=== PATIENT | female | born 1980 | race Two or more races ===

== ENCOUNTER 2020-08-29 22:47 | Emergency (ER) | payer SELFPAY ==
[~2020-08-29] VITALS: Ht 170.2 cm; Wt 95.0 kg
[2020-08-30] MEDS: FOSPHENYTOIN 100 MG/2 ML VIAL. IV ONE (01:27)
--- NOTE | 2020-08-30 02:27 | RAD ---
EXAM: CT HEAD WITHOUT IV CONTRAST CLINICAL HISTORY: Reason: severe R sided pain, lesion?? / Spl. Instructions: / History: COMPARISON: None. TECHNIQUE: Routine CT of the head without contrast. Soft tissues and bone windows were reviewed. PQRS compliance statement - One or more of the following individualized dose reduction techniques wer e utilized for this study: 1. Automated exposure control 2. Adjustment of the mA and/or kV according to patient size 3. Use of iterative reconstruction technique FINDINGS: There is no evidence of hemorrhage, mass or extra-axial fluid collection. Alvarez-white differentiation is maintained with no evidence of edema. There is no mass effect or shift of the intracranial structures. The ventricles, basilar cisterns and cortical sulci are normal in size and configuration for the silvestre ents stated age. The cerebellum and brainstem are unremarkable. The calvarium demonstrates no evidence of fracture or focal lesion. The visualized portions of the orbits are normal. IMPRESSION: No evidence for acute intracranial process. EXAM: CT CERVICAL SPINE WITHOUT IV CONTRAST CLINICAL HISTORY: Reason: severe R sided pain, lesion?? / Spl. Instructions: / History: COMPARISON: None available. TECHNIQUE: Helical CT of the cervical spine was performed. Axial, coronal and sagittal reformatted im ages were also performed. PQRS compliance statement - One or more of the following individualized dose reduction techniques wer e utilized for this study: 1. Automated exposure control 2. Adjustment of the mA and/or kV according to patient size 3. Use of iterative reconstruction technique FINDINGS: Vertebral body heights are preserved. No acute fracture is seen. Disc heights are preserved. There is normal alignment of the cervical spine. IMPRESSION: 1. Negative acute fracture or subluxation. EXAM: CT facial bones without contrast CLINICAL HISTORY: Reason: severe R sided pain, lesion?? / Spl. Instructions: / History: COMPARISON: None available. TECHNIQUE: Helical CT of the face/paranasal sinuses was acquired and axial, coronal and sagittal refo rmatted images were generated. ---PQRS compliance statement - One or more of the following individualized dose reduction techniques were utilized for this study: 1. Automated exposure control 2. Adjustment of the mA and/or kV according to patient size 3. Use of iterative reconstruction technique--- FINDINGS: No definite fracture is noted of the facial bones. Right maxillary sinus thickening likely sinusitis. Otherwise paranasal sinuses are clear. No evidence of air-fluid levels. The mastoids are unremarkable. The globes, extraocular muscles, optic nerves and retrobulbar fat are normal. Visualized upper aerodigestive tract is normal. Mandible and bilateral temporomandibular joints are normal. IMPRESSION: 1. No evidence of acute facial bone fracture or dislocation. 2. Right maxillary sinus thickening, likely sinusitis. Electronically signed by: Dalton Escalante MD (08/30/2020 2:24 AM) [facility]
[2020-08-30 02:45] VITALS: BP 108/62
[2020-08-30] MEDS ORDERED: PRED50TA PO (02:55)
[2020-08-30] MEDS ORDERED: DOXY100C2 PO (02:55)
--- NOTE | 2020-08-30 02:55 | ED.ADGEN ---
Past Medical History Past Medical History: Hypothyroid, Other Additional Past Medical Histor: facial paralysis 2012 Past Surgical History: No Surgical History Smoking Status: Never Smoker Alcohol Use: Occasionally General Adult EDM: Chief Complaint: FACE PAIN HPI: HPI: Patient is a 40-year-old female who presents to the emergency room complaining of right-sided facial pain and pressure. She states that it does cause her teeth to hurt and at that she has a lot of pain with chewing. She has been having associated headaches and some right shoulder pain. She has had some nasal congestion. She has never had anything like this previously. She states that it feels like a pressure shooting pain through her face. She denies any kind of trauma. She denies any difficulty with swallowing or talking. Review of Systems: Review of Systems: Complete ROS is negative unless otherwise documented in HPI Current Medications: Current Medications Medications (Trade) Dose Ordered Sig/Chao Start Time Stop Time Status Last Admin Dose Admin Fosphenytoin Sodium (Cerebyx) 100 mg 1X ONCE 08/30/20 01:00 08/30/20 01:07 DC 08/30/20 01:27 100 MG Allergies: Allergies: Allergies Coded Allergies Type Severity Reaction Last Updated Verified No Known Drug Allergies 08/30/20 No Physical Exam: PE: General: Awake, alert, NAD. Well Nourished, well hydrated. Cooperative HEENT: Atraumatic, EOMI, PERRL, airway patent, moist oral mucosa, right-sided facial tenderness Neck: Supple, trachea midline Respiratory: CTA bilaterally, normal effort, no wheezing/crackles CV: RRR, no murmur, cap refill <2 GI: Soft, nondistended, nontender, no masses MSK: No obvious deformities Skin: Warm, dry, intact Neuro: A&O x3, speech NL, sensory and motor grossly intact, no focal deficits Psych: Normal affect, normal mood, not suicidal or homicidal Current Patient Data: Labs: Laboratory Tests Test 08/30/20 01:38 POC Urine HCG, Qualitative Hcg negative (Negative) Vital Signs: Vital Signs Date Time Temp Pulse Resp B/P (MAP) Pulse Ox O2 Delivery O2 Flow Rate FiO2 08/30/20 02:45 80 20 108/62 (77) 98 Room Air 08/30/20 00:15 98.2 98.2 EKG: EKG: [] Heart Score: C/O Chest Pain: N/A Risk Factors: Risk Factors: DM, Current or recent (<one month) smoker, HTN, HLP, family history of CAD, obesity. Risk Scores: Score 0 - 3: 2.5% MACE over next 6 weeks - Discharge Home Score 4 - 6: 20.3% MACE over next 6 weeks - Admit for Clinical Observation Score 7 - 10: 72.7% MACE over next 6 weeks - Early Invasive Strategies Radiology/Procedures: Radiology/Procedures: [] Course & Med Decision Making: Course & Med Decision Making Pertinent Labs and Imaging studies reviewed. (See chart for details) patient is a 40-year-old previously healthy Upper Sorbian-speaking female who presents to the emergency room from stating of right-sided facial pain. Patient does have increased pain with palpation to the face. Presentation is concerning for possible trigeminal neuralgia. Differential diagnosis also includes deep tissue infection, sinusitis, dental infection. Teeth do appear to be normal on exam without any erythema or signs of dental infection. She was given fosphenytoin for possible trigeminal neuralgia. CT of the face and neck were ordered to rule out any compressing lesion and are normal other than sinusitis on the right side. This may be causing the patient's symptoms and we will treat her for acute bacterial sinusitis. Discussed with the patient that it is possible that she could still have trigeminal neuralgia and I have referred her to a primary care physician. Patient's test results and vitals while in the ED were fully reviewed and discussed with the patient. Patient is stable and at this time does not need admission to the hospital. We have discussed strict return precautions and [facility] Patient stated understanding and was given an opportunity to ask any questions. Patient is in agreement with plan. Agnieszka Disclaimer: Agnieszka Disclaimer: This electronic medical record was generated, in whole or in part, using a voice recognition dictation system. Departure Departure Impression: Primary Impression: Facial pain Additional Impression: Acute bacterial sinusitis Disposition: HOME / SELF CARE / HOMELESS Condition: IMPROVED Referrals: NO PCP (PCP) Patient Instructions: Sinusitis Scripts Prednisone (PREDNISONE) 50 Mg Tablet 1 TAB PO DAILY, #5 TAB Prov: SHAILA BINGHAM MD 08/30/20 Doxycycline Hyclate (DOXYCYCLINE HYCLATE) 100 Mg Capsule 1 CAP PO BID, #14 CAP Prov: SHAILA BINGHAM MD 08/30/20 Problem Qualifiers SHAILA BINGHAM MD August 30, 2020 02:55
== END 2020-08-30 03:04 | disposition home or self-care (01) ==
LOC: ER 22:47
DX: J01.80 Other acute sinusitis (principal); B96.89 Other specified bacterial agents as the cause of diseases classified elsewhere; R51.9 Headache, unspecified; E03.9 Hypothyroidism, unspecified
CPT/HCPCS: 70450; 70486; 72125; 81025; 96374; 99285; Q2009